=== PATIENT | male | born 1985 | race Caucasian/White ===

== ENCOUNTER 2021-11-12 12:47 | Outpatient (CLI) | payer OTHER ==
--- NOTE | 2021-11-12 17:00 | MRI Report ---
PROCEDURE: Knee RT W/O INDICATIONS: RIGHT KNEE PAIN TECHNIQUE: Noncontrast sagittal PD fast spin echo and T2 fast spin echo with fat saturation, sagittal 3-D gradie nt sequence with fat saturation; coronal T1 spin echo and PD fast spin echo with fat saturation, and axial PD fast spin echo with fat saturation through the knee. COMPARISON: None. FINDINGS: Image quality: Excellent. Menisci: The medial and lateral menisci demonstrate normal morphology and internal signal. The meni scal root ligaments appear intact. Cruciate ligaments: The anterior and posterior cruciate ligaments appear intact. Medial structures: The medial collateral ligament appears intact. Visualized portions of the pes ans erinus tendons appear normal. No abnormal bursal fluid. Lateral structures: The lateral collateral ligament, long and short heads of the biceps femoris tend on appear intact. The popliteus tendon appears normal. Iliotibial band appears normal. Anterior structures: Moderate prepatellar subcutaneous fat stranding. The quadriceps and patellar te ndons appear intact. Patellar alignment is normal. No femoral trochlear dysplasia or ventral trochle ar prominence. No edema in the infrapatellar fat pad. Bones and cartilage: No bone marrow contusions or fractures. The cartilage of the medial and latera l femorotibial compartments, as well as the patellofemoral compartment, appears normal in thickness. Joint space: There is physiologic knee joint fluid. No Andrews's cyst. Normal appearing synovial pli are incidentally noted. IMPRESSION: 1. Prepatellar bursitis versus soft tissue injury. 2. Otherwise negative examination. No internal derangement. Reviewed by: Nicola Rahman MD on 11/12/2021 4:59 PM PDT Approved by: Nicola Rahman MD on 11/12/2021 4:59 PM PDT Station ID: [id number]
== END 2021-11-12 12:48 | disposition home or self-care (01) ==
LOC: DI 12:47
PROVIDERS: ATTEND Orthopaedic Surgery
DX: R93.6 Abnormal findings on diagnostic imaging of limbs (principal)

== ENCOUNTER 2022-06-02 09:31 | Outpatient (CLI) | payer OTHER | END 2022-06-02 09:32 | disposition home or self-care (01) | LOC: SC 09:31 | PROVIDERS: ATTEND Nurse Practitioner Family | DX: R06.83 Snoring (principal); G47.8 Other sleep disorders; R51.9 Headache, unspecified; G47.10 Hypersomnia, unspecified; R53.83 Other fatigue | CPT/HCPCS: 95806 ==

== ENCOUNTER 2022-07-08 08:50 | Outpatient (CLI) | payer OTHER ==
[2022-07-08 09:24] VITALS: BP 122/80
--- NOTE | 2022-07-08 09:24 | SLEEP CARE CONSULTATION ---
Information from patient questionnaire entered by Simran Parham. I have reviewed and concur with the information entered by Simran Parham. This document represents the service I personally performed and the decisions made by , Lory Mota ARNP. History of Present Illness Service Date and Time: 07/08/2022 0850 Initial [place] Sleepiness Scale score: 18 (04/2022) Current [place] Sleepiness Scale score: 14 (07/08/2022) Additional HPI information: SHERINE HERRERA returns for follow up and results of the recently performed home sleep study. The patient was informed of the following findings: No significant sleep disordered breathing with an average AHI of 0.9 and susan oxygen saturation of 91%. I explained the pathophysiology behind obstructive sleep apnea. Patient does not have sleep apnea and was advised how weight gain could increase the risk of developing sleep apnea in the future. I strongly encouraged the patient to lose weight. Patient has moderate snoring. Snoring can be reduced by weight loss. Weight loss is best achieved with diet consult. Patient instructed to contact PCP for referral. Snoring can also be treated with an oral appliance from a dentist. Advised to check insurance coverage. In addition, an ENT evaluation can be do to see if other treatment is indicated. Patient counseled not drink alcohol less than 4 hours before bedtime as it can increase snoring and apnea. Patient was cautioned about risks of drowsy driving until sleepiness symptoms resolve. Patient denies drowsy driving. Sleep Study - Results Type of Sleep Study: Home sleep study (COMPLETED 06/02/2022) Prior sleep studies: Yes Year and Where: [place] May 2021 Polysomnography/Home Sleep Study results: Physician Impression: The quality of the study is good. The length of the study is adequate (> 240 minutes). Please also see the tabulated and graphic data. 1. No significant sleep disordered breathing, with an AHI of 0.9/hr and susan SaO2 of 91%. During the study, the patient had 2 apneas (2 obstructive, 0 central, 0 mixed) and 5 hypopneas. The longest episode lasted 110.0 seconds. The patient slept adequately in supine position (supine AHI was 0.5 and non-supine, 1.22). Allergies and Home Medications Drug allergies reviewed: Yes (NKDA) Home medication list reviewed: Yes (no changes) Review of Systems Review of systems same as previous: Yes (no changes) Physical Exam Vital signs obtained and entered by: SIMRAN Aquino MA Blood Pressure: 122/80 (LEFT ARM) Cuff size: regular Heart Rate: 70 O2 Saturation: 97 Height: 5 ft 9 in Weight: 193 lb 3.2 oz Body Mass Index: 28.5 BMI Classification: Overweight Impression and Plan Snoring but no significant sleep disordered breathing. Patient advised that often weight loss will reduce snoring as well as apnea risk. An oral appliance can also be used for snoring. This would require a dental consultation. Patient cautioned not to use other online appliances as can cause bite issues. A list of accredited dentists in [facility] and one local dentist who makes oral appliances is available in the office. Patient is advised to check if insurance will cover. An ENT consult can also be helpful to determine if any other treatment is an option. * Attempt to lose weight * Avoid alcohol consumption near bedtime * The patient is cautioned about driving until sleepiness is completely resolved. * Return as needed for follow up. Counseling Topics: Weight loss health impact Visit Type: In Office Time Spent with Patient (minutes): 20 Provider Statement: I spent 100% of the Face to Face Visit with the patient with greater than 50% spent counseling the patient and coordination of care.
== END 2022-07-08 08:51 | disposition home or self-care (01) ==
LOC: SC 08:50
PROVIDERS: ATTEND Nurse Practitioner Family
DX: R06.83 Snoring (principal); E66.3 Overweight; Z68.28 Body mass index [BMI] 28.0-28.9, adult
CPT/HCPCS: 99212; 99213